=== PATIENT | female | born 1955 | race Asian ===

== ENCOUNTER 2018-03-13 02:40 | Emergency (ER) | payer MEDICAID, OTHER ==
[~2018-03-13] VITALS: Ht 160 cm; Wt 54.4 kg
--- NOTE | 2018-03-13 02:40 | NUR ---
PT BIBA TO ER BED 03
[2018-03-13 02:45] VITALS: BP 187/113
[2018-03-13] MEDS ORDERED: NACL 0.9% 1,000 ML IV ONE (02:45)
--- NOTE | 2018-03-13 02:50 | NUR ---
DR. JOHNSON AT BEDSIDE EVALUATING PT.
--- NOTE | 2018-03-13 02:58 | NUR ---
62Y/F BIBA C/O GENERALIZED WEAKNESS MATERIAL REQUIREMENTS [employer], PER [facility] ON SCENE PT WAS AA&OX4, ABLE TO AMBULATE AND NO LONGER C/O WEAKNESS, B/P ON SCENE WAS ELEVATED. PT WAS ABLE TO AMBULATE TO BED, STEADY GAIT. PT DENIES PMH, NKA
[2018-03-13 03:00] LABS: APPEARANCE,URINE CLEAR (CLEAR); BILIRUBIN,URINE NEGATIVE (NEGATIVE); BLOOD, URINE NEGATIVE (NEGATIVE); COLOR,URINE YELLOW (YELLOW); LEUKOCYTE ESTERASE ,URINE NEGATIVE (NEGATIVE); NITRITE, URINE NEGATIVE (NEGATIVE); UGLUCOSE NEGATIVE (NEGATIVE)
[2018-03-13] MEDS ORDERED: cloNIDine 0.1 MG TAB PO ONE (03:05)
[2018-03-13 03:14] LABS: BARBITURATE, URINE NEG. ng/ml (NEG <=200); BENZODIAZEPINE, URINE NEG. ng/mL (NEG <=200); CANNABINOID, URINE NEG. ng/mL (NEG <=50); COCAINE, URINE NEG. ng/mL (NEG <=300); OPIATE, URINE NEG. ng/mL (NEG <=2000); PHENCYCLIDINE SCREEN,URINE NEG. ng/mL (NEG <=25)
[2018-03-13 03:15] LABS: ALBUMIN 3.5 g/dL (3.4-5.0); ANION GAP 13.1 (8-16); CARBON DIOXIDE 30.5 mmol/L (21-32); CREATININE 0.9 mg/dL (0.6-1.3); POTASSIUM 3.6 mmol/L (3.5-5.1); TOTAL BILIRUBIN 0.4 mg/dL (0.0-1.0)
[2018-03-13 03:15] LABS: RBC,URINE 0-5 (RARE) /HPF (0-5); WBC,URINE NONE SEEN /HPF (0-5)
[2018-03-13 03:19] LABS: BASOPHILS % (AUTO) 0.5 % (0.0-2.0); EOSINOPHILS # (AUTO) 0.2 K/uL (0-0.4); EOSINOPHILS % (AUTO) 2.2 % (0.0-4.0); HEMATOCRIT 43.5 % (36-48); HEMOGLOBIN 14.8 g/dL (12.0-16.0); LYMPHOCYTES % (AUTO) 39.1 % (20.5-51.1); MEAN CORPUSCULAR HEMOGLOBIN 31 pg (27-31); MEAN CORPUSCULAR HGB CONC 34 g/dL (33-37); MEAN CORPUSCULAR VOLUME 90.8 fL (80-94); MONOCYTES # (AUTO) 0.4 K/uL (0.8-1.0); MONOCYTES % (AUTO) 5.7 % (1.7-9.3); NEUTROPHILS % (AUTO) 52.5 % (42.2-75.2); PLATELET COUNT (AUTO) 267 K/uL (140-450); RED BLOOD CELL COUNT(AUTO) 4.79 MIL/uL (4.20-5.40); RED CELL DISTRIBUTION WIDTH 12.3 % (11.6-13.7); WHITE BLOOD COUNT (AUTO) 7.6 K/uL (4.8-10.8)
--- NOTE | 2018-03-13 04:06 | NUR ---
Patient discharged with v/s stable. Written and verbal after care instructions given and explained. Patient alert, oriented and verbalized understanding of instructions. Ambulatory with steady gait. All questions addressed prior to discharge. ID band removed. Patient advised to follow up with PMD. Rx of ASPIRIN 81MG given. Patient educated on indication of medication including possible reaction and side effects. Opportunity to ask questions provided and answered. IV removed, catheter intact and site benign. Applied folded 4x4 gauze and tape to stop bleeding.
[2018-03-13 04:12] VITALS: BP 145/83
== END 2018-03-13 04:06 | disposition home or self-care (01) ==
LOC: MED 02:40
DX: I10 Essential (primary) hypertension (principal); E11.9 Type 2 diabetes mellitus without complications
CPT/HCPCS: 36415; 71045; 80053; 80305; 81001; 81025; 84484; 85025; 93005; 96360; 99285; G0482; J7030; Q0092

== ENCOUNTER 2019-04-06 14:13 | Inpatient (IN) | payer OTHER ==
[~2019-04-06] VITALS: Ht 160 cm; Wt 62.6 kg
[2019-04-06 14:24] VITALS: BP 217/143
--- NOTE | 2019-04-06 14:40 | NUR ---
C/O LT ARM PAIN X2 WEEKS. CONSTANT SHARP PAIN FROM SHOULDER DOWN TO HAND AT 10/10. PT REPORTS NUMBNESS AND TINGLING IN FINGERS ON LT HAND. PT TX W/ IBUPROFEN WITH NO RELIEF. PT DENIES TRAUMA. +CMS . DENIES N/V/D; SKIN IS PINK/WARM/DRY; AAOX4 WITH EVEN AND STEADY GAIT; LUNGS CLEAR BL; PT DENIES ANY FEVER, CP, SOB, OR COUGH AT THIS TIME; PATIENT STATES PAIN OF 10/10 AT THIS TIME; VSS; PATIENT POSITIONED FOR COMFORT; HOB ELEVATED; BEDRAILS UP X2; BED DOWN. ER MD MADE AWARE OF PT STATUS.
[2019-04-06] MEDS ORDERED: MORPHINE SULFATE 4 MG/ML SYR IVP ONE (15:05)
[2019-04-06] MEDS ORDERED: LORazepam 2 MG/ML VIAL IVP ONE (15:05)
[2019-04-06] MEDS ORDERED: METOPROLOL 5 MG/5 ML VIAL IVP ONE (15:05)
[2019-04-06] MEDS ORDERED: NITROGLYCERIN 2% 1 GM PKT TP ONE (15:05)
[2019-04-06] MEDS ORDERED: cloNIDine 0.1 MG TAB PO ONE (15:15)
[2019-04-06 15:43] LABS: BASOPHILS # (AUTO) 0.1 K/uL (0.00-0.22); BASOPHILS % (AUTO) 1.1 % (0.0-2.0); EOSINOPHILS # (AUTO) 0.5 K/uL (0-0.4); EOSINOPHILS % (AUTO) 5.1 % (0.0-4.0); HEMOGLOBIN 13.3 g/dL (12.0-16.0); LYMPHOCYTES # (AUTO) 2.9 K/uL (2.5-16.5); LYMPHOCYTES % (AUTO) 32.2 % (20.5-51.1); MEAN CORPUSCULAR HEMOGLOBIN 31 pg (27-31); MEAN CORPUSCULAR HGB CONC 34 g/dL (33-37); MONOCYTES # (AUTO) 0.7 K/uL (0.8-1.0); MONOCYTES % (AUTO) 7.5 % (1.7-9.3); NEUTROPHILS # (AUTO) 4.9 K/uL (1.8-7.7); NEUTROPHILS % (AUTO) 54.1 % (42.2-75.2); PLATELET COUNT (AUTO) 306 K/uL (140-450); RED BLOOD CELL COUNT(AUTO) 4.33 MIL/uL (4.20-5.40); RED CELL DISTRIBUTION WIDTH 12.3 % (11.6-13.7); WHITE BLOOD COUNT (AUTO) 9.1 K/uL (4.8-10.8)
[2019-04-06 15:55] LABS: ANION GAP 10.7 (8-16); CARBON DIOXIDE 31.5 mmol/L (21-32); CREATININE 0.9 mg/dL (0.6-1.3); POTASSIUM 3.2 mmol/L (3.5-5.1)
[2019-04-06 15:57] LABS: PROTHROMBIN TIME 9.2 secs (10.8-13.4)
[2019-04-06 16:01] LABS: MAGNESIUM 1.8 mg/dL (1.8-2.4)
[2019-04-06 16:02] LABS: ALBUMIN 3.5 g/dL (3.4-5.0); TOTAL BILIRUBIN 0.3 mg/dL (0.0-1.0)
--- NOTE | 2019-04-06 16:05 | NUR ---
PT STATED NO NUMBNESS TO FINGERS ANYMORE.
[2019-04-06 16:30] LABS: D-DIMER < 100 ng/ml (0-400)
[2019-04-06] MEDS ORDERED: IBUP-2213 PO (16:37)
--- NOTE | 2019-04-06 16:42 | NUR ---
Patient taken to CT scan via gurney by [facility].
--- NOTE | 2019-04-06 17:30 | NUR ---
PT SLEEPING IN BED, NO S/S OF RESPIRATORY DISTRESS NOTED.
[2019-04-06] MEDS ORDERED: POTASSIUM CHLORIDE 10 MEQ TABER PO ONE ×2 (17:50→18:10)
[2019-04-06] MEDS ORDERED: MORPHINE SULFATE 2 MG/ML SYR IVP PRN (17:50)
[2019-04-06] MEDS ORDERED: LORazepam 1 MG TAB PO PRN (17:50)
[2019-04-06] MEDS ORDERED: ZOLPIDEM 5 MG TAB PO PRN (17:50)
[2019-04-06] MEDS ORDERED: ALUMINUM HYD/MAG/SIMETHICONE 30 ML UDC PO PRN (17:50)
[2019-04-06] MEDS ORDERED: ACETAMINOPHEN 325 MG TAB PO PRN (17:50)
[2019-04-06] MEDS ORDERED: NITROGLYCERIN 0.4 MG TAB SL PRN (17:50)
[2019-04-06] MEDS ORDERED: ASPIRIN 81 MG TAB.CHEW PO SCH (18:00)
--- NOTE | 2019-04-06 18:05 | NUR ---
PT STATED NO MORE NUMBNESS. STATED PAIN RELIEVED.
--- NOTE | 2019-04-06 18:45 | NUR ---
REPORT GIVEN TO ANGELA HOWARD. TRANSFERRED PT TO 121B. PT AWAKE, ALERT. NO SOB. ALL PERSONAL BELONGINGS WITH PT.
--- NOTE | 2019-04-06 18:50 | NUR ---
RECEIVED BEDSIDE REPORT FROM COPER HANDANITA SCHROEDER. PT STABLE, AWAKE, ALERT AND ORIENTED X4. NO SIGNS OF DISTRESS NOTED. DENIES PAIN OR SOB. VITAL SIGNS TAKEN, BP 178/97, HR 67, TEMP 97.5, RR 18, O2 SAT AT 98%, COPER HANDANITA SCHROEDER AWARE. NO REDNESS, SWELLING, OR INFLAMMATION NOTED ON IV SITE. PT AMBULATED TO THE BED WITH STEADY GAIT. CALL [facility] WITHIN REACH. BED IN LOWEST POSITION. SAFETY MEASURES IN PLACE. PLAN OF CARE REVIEWED.
--- NOTE | 2019-04-06 19:00 | NUR ---
ADMINISTERED SCHEDULED K-ELIE, PT TOLERATED WELL. NO OTHER NEEDS AT THIS TIME. Addendum: 04/06/19 at 1920 by Kirsten Parr RN K-ELIE [id number] ENDORSED BY FRACISCO SPENCER
--- NOTE | 2019-04-06 19:13 | NUR ---
ENDORSED PT TO ANITA CAREY FOR CONTINUITY OF CARE. PT STABLE.
--- NOTE | 2019-04-06 19:13 | NUR ---
RECEIVED REPORT FROM ONELIA BRAMBILA AT BEDSIDE FOR CONTINUITY OF CARE, PT IN STABLE CONDITION.
[2019-04-06 19:30] VITALS: BP 151/89
[2019-04-06] MEDS ORDERED: LISINOPRIL 10 MG TAB PO SCH (20:00)
[2019-04-06] MEDS ORDERED: hydrALAZINE 20 MG/ML VIAL IVP PRN (20:00)
--- NOTE | 2019-04-06 20:00 | NUR ---
PT SITTING UP IN BED AND ON ROOM AIR WITH EVEN UNLABORED RESPIRATIONS. PT AOX3 SKIN INTACT WITH NO C/O OF PAIN VOICED.PT A FALLS RISK WITH ALL FALLS PRECAUTIONS IN PLACE AT THIS TIME. LAST REPORTED B/P WAS 178/103. DR. HEAD WAS CALLED AND HE CALLED BACK WITH NEW ORDERS FOR B/P MEDS INCLUDING LISINOPRIL 10MG WELL LISNOPRIL 10MG BID. MD HEAD ALSO ORDERED PRN IV B/P MEDS FOR SYSTOLIC B/P OVER 150. CURRENT V/S FOLLOWS T 97.4 P 71 R 18 B/P 151/89 02 97% WITH ROOM AIR.
[2019-04-06] MEDS: LISINOPRIL 10 MG TAB PO SCH (20:19)
[2019-04-06] MEDS: METOPROLOL 25 MG TAB PO SCH (20:19)
[2019-04-06] MEDS ORDERED: SIMVASTATIN 20 MG TAB PO SCH (21:00)
--- NOTE | 2019-04-06 21:00 | NUR ---
PT GIVEN DUE MEDS OF LOPRESSOR, LISINOPRIL AND ZOCOR.MEDICATION EDUCATION PROVIDED WELL MRSA SWAB AND ALL ADMISSION QUESTIONS DONE. PT LEFTY ANY MEDICAL HX AT THIS TIME.
[2019-04-07] VITALS: BP 121/74
--- NOTE | 2019-04-07 | NUR ---
PT IN BED RESTING WITH EYES CLOSED, BUT AROUSABLE TO NAME AND LIGHT TOUCH. NO S/S NOTED V/S FOLLOWS T 97.0 P 67 R 18 B/P 121/74 02 98% ON ROOM AIR. ALL FALLS PRECAUTIONS IN PLACE.
--- NOTE | 2019-04-07 03:13 | NUR ---
PT IN BED SLEEPING NO S/S OF PAIN OR DISTRESS NOTED. ALL FALLS PRECAUTIONS IN PLACE.
[2019-04-07 04:00] VITALS: BP 136/78
--- NOTE | 2019-04-07 04:35 | NUR ---
PT IN BED NO S/S OF PAIN OR DISTRESS NOTED. V/S FOLLOWS T 98.0 P 68 R 18 B/P 136/78 02 99% ON ROOM AIR. BED LOW AND ALL SAFETY PRECAUTIONS IN PLACE.
--- NOTE | 2019-04-07 07:30 | NUR ---
REPORT GIVEN TO ELDA RN AT BEDSIDE FOR CONTINUITY OF CARE, PT IN STABLE CONDITION.
--- NOTE | 2019-04-07 07:32 | NUR ---
RECEIVED BEDSIDE REPORT FROM YARN FINISHER RN FOR CONTINUITY OF CARE. PT IN STABLE CONDITION. NO C/O PAIN AND DISCOMFORT AT THIS TIME. NO S/S DISTRESS. RESPIRATIONS EVEN AND UNLABORED. HEART RHYTHM REGULAR. ACTIVE BS IN ALL QUADRANTS. ABDOMEN SOFT AND NON-DISTENDED. SKIN INTACT. PT IS AMBULATORY WITHOUT ASSIST. IV SITE PATENT AND ASYMPTOMATIC, ON SL. ALL SAFETY PRECAUTIONS IN PLACE, WILL CONTINUE TO MONITOR. Addendum: 04/07/19 at 0809 by Shama Evans Meng RN AOX4, COOPERATIVE, INTERACTING APPROPRIATELY.
[2019-04-07 08:00] VITALS: BP 141/78
[2019-04-07 08:04] LABS: BASOPHILS # (AUTO) 0.1 K/uL (0.00-0.22); BASOPHILS % (AUTO) 0.8 % (0.0-2.0); EOSINOPHILS # (AUTO) 0.3 K/uL (0-0.4); HEMATOCRIT 34.4 % (36-48); HEMOGLOBIN 11.8 g/dL (12.0-16.0); LYMPHOCYTES # (AUTO) 2.5 K/uL (2.5-16.5); LYMPHOCYTES % (AUTO) 31.2 % (20.5-51.1); MEAN CORPUSCULAR HEMOGLOBIN 31 pg (27-31); MEAN CORPUSCULAR HGB CONC 34 g/dL (33-37); MEAN CORPUSCULAR VOLUME 90.5 fL (80-94); MONOCYTES # (AUTO) 0.6 K/uL (0.8-1.0); MONOCYTES % (AUTO) 7.8 % (1.7-9.3); NEUTROPHILS # (AUTO) 4.4 K/uL (1.8-7.7); NEUTROPHILS % (AUTO) 56.2 % (42.2-75.2); PLATELET COUNT (AUTO) 278 K/uL (140-450); RED CELL DISTRIBUTION WIDTH 12.3 % (11.6-13.7); WHITE BLOOD COUNT (AUTO) 7.9 K/uL (4.8-10.8)
[2019-04-07] MEDS: LISINOPRIL 10 MG TAB PO SCH (08:05)
[2019-04-07] MEDS: METOPROLOL 25 MG TAB PO SCH (08:06)
[2019-04-07 08:41] LABS: ALBUMIN 2.8 g/dL (3.4-5.0); ANION GAP 10.6 (8-16); CARBON DIOXIDE 29.5 mmol/L (21-32); CREATININE 0.8 mg/dL (0.6-1.3); MAGNESIUM 1.9 mg/dL (1.8-2.4); POTASSIUM 4.1 mmol/L (3.5-5.1); TOTAL BILIRUBIN 0.4 mg/dL (0.0-1.0)
--- NOTE | 2019-04-07 08:55 | NUR ---
PAGED DR. JORGE FOR PT C/O 05/09 LEFT DELTOID AREA, DENIES CP. STATES PAIN COMES AND GOES AND HAS BEEN A CHRONIC ISSUE FOR HER. RECEIVED TORB ORDER
[2019-04-07] MEDS ORDERED: ASPIRIN 81 MG TAB.CHEW PO SCH (09:00)
[2019-04-07] MEDS ORDERED: LISINOPRIL 10 MG TAB PO SCH (09:00)
[2019-04-07] MEDS: KETOROLAC 30 MG/ML VIAL IVP PRN ×2 (09:38→09:42)
[2019-04-07 12:00] VITALS: BP 130/77
--- NOTE | 2019-04-07 12:46 | NUR ---
PT IN BED WATCHING TV. ALL NEEDS MET AT THIS TIME. ALL SAFETY PRECAUTIONS IN PLACE, WILL CONTINUE TO MONITOR.
--- NOTE | 2019-04-07 13:59 | NUR ---
PT RESTING IN BED, NO C/O PAIN OR DISCOMFORT AT THIS TIME. WILL CONTINUE TO MONITOR.
--- NOTE | 2019-04-07 15:54 | NUR ---
ADMINISTERED HYDRALAZINE IVP FOR BP OF 157/85 PER MD ORDERS. PT DENIES PAIN AND DISCOMFORT AT THIS TIME. REMAINS AOX4.
[2019-04-07 16:00] VITALS: BP 157/85
[2019-04-07 16:50] VITALS: BP 136/80
--- NOTE | 2019-04-07 17:20 | NUR ---
PT RESTING IN BED. NO C/O PAIN OR DISCOMFORT. WILL CONTINUE TO MONITOR.
--- NOTE | 2019-04-07 17:30 | NUR ---
NOTIFIED DR. JORGE THAT PT WANTS TO LEAVE AMA. DR. ARGUETA.
--- NOTE | 2019-04-07 17:46 | NUR ---
PROVIDED PATIENT WITH HOMELESS PACKET/RESOURCES. PT SIGNED HOMELESS WAIVER. ALSO CALLED [facility] FOR FOOD PACKET.
--- NOTE | 2019-04-07 18:10 | NUR ---
REMOVED IV WITH MINIMAL BLOOD LOSS AND LUMEN COMPLETELY INTACT. ID BANDS REMOVED.
--- NOTE | 2019-04-07 18:15 | NUR ---
PT LEFT IN STABLE CONDITION, AMA, WITH ALL PERSONAL BELONGINGS, FOOD PACKET, AND HOMELESS RESOURCES.
== END 2019-04-07 18:15 | disposition left against medical advice (07) | DRG 199 ==
LOC: MED 14:13 → MTU 17:54
PROVIDERS: ADMIT Internal Medicine Pulmonary Disease; ATTEND Internal Medicine Pulmonary Disease
DX: I16.1 Hypertensive emergency (principal); I24.9 Acute ischemic heart disease, unspecified; R07.89 Other chest pain; F10.20 Alcohol dependence, uncomplicated; I10 Essential (primary) hypertension; M25.512 Pain in left shoulder; Z53.21 Procedure and treatment not carried out due to patient leaving prior to being seen by health care provider; Z86.32 Personal history of gestational diabetes
CPT/HCPCS: 36415; 71045; 71275; 73030; 80053; 82550; 83735; 83880; 84484; 85025; 85379; 85610; 85730; 86886; 86900; 86901; 87081; 93005; 96374; 96375; 99285; J0360; J1644; J1885; J2060; J2270; J3490; Q0092; Q9967

== ENCOUNTER 2023-01-18 12:42 | Emergency (ER) | payer OTHER ==
[~2023-01-18] VITALS: Ht 160 cm; Wt 63.0 kg
[~2023-01-18 12:42] MED LIST: IBUP-2213 PO
[2023-01-18 12:49] VITALS: BP 145/91
--- NOTE | 2023-01-18 13:00 | NUR ---
67 Y/O FEMALE BIB C/O LEFT FLANK PAIN DESCRIBED "THROBBING" X2 DAYS, DENIES ANY NVD. DENIES ANY BURNING URINATION OR OTHER UA S/S. DENIES ANY TRAUMA/INJURY. NKA PMH: HTN, GOUT
[2023-01-18] MEDS ORDERED: ACET-8905 PO (13:50)
[2023-01-18] MEDS ORDERED: NAPR-1704 PO (13:53)
[2023-01-18 14:04] LABS: APPEARANCE,URINE CLEAR (CLEAR); BILIRUBIN,URINE NEGATIVE (NEGATIVE); BLOOD, URINE NEGATIVE (NEGATIVE); COLOR,URINE YELLOW (YELLOW); LEUKOCYTE ESTERASE ,URINE NEGATIVE (NEGATIVE); NITRITE, URINE NEGATIVE (NEGATIVE); UGLUCOSE NEGATIVE (NEGATIVE)
--- NOTE | 2023-01-18 14:25 | NUR ---
Patient discharged with v/s stable. Written and verbal after care instructions ABOUT FLANK PAIN given and explained. Patient alert, oriented and verbalized understanding of instructions. Ambulatory with steady gait. All questions addressed prior to discharge. ID band removed. Patient advised to follow up with PMD. Rx of NAPROXEN, NORCO 5-325 given. Patient educated on indication of medication including possible reaction and side effects. Opportunity to ask questions provided and answered.
== END 2023-01-18 14:25 | disposition home or self-care (01) ==
LOC: MED 12:42
DX: R10.9 Unspecified abdominal pain (principal); I10 Essential (primary) hypertension; Z72.89 Other problems related to lifestyle; Z79.899 Other long term (current) drug therapy
CPT/HCPCS: 81003; 99283